=== PATIENT | female | born 1985 | race Caucasian/White ===

== ENCOUNTER 2020-12-26 10:15 | Inpatient (IN) | payer OTHER ==
[~2020-12-26] VITALS: Ht 149.9 cm; Wt 3.6 kg
[~2020-12-26 10:15] MED LIST: PRENATAL TABLE1 EAC1 PO
[2020-12-26] MEDS ORDERED: PRENATAL + DHA1 EAC1 PO (13:22)
[2020-12-31] MEDS ORDERED: ADULT LOW DOSE81 M1 PO (06:10)
== END 2021-01-02 13:00 | disposition home or self-care (01) | DRG 785 ==
LOC: OB/GYN 12-31 05:45 → O/R 12-31 05:45 → OB/GYN 12-31 08:30
PROVIDERS: ADMIT Obstetrics & Gynecology; ATTEND Obstetrics & Gynecology
PROC: 0UB70ZZ Excision of Bilateral Fallopian Tubes, Open Approach (ICD-10-PCS; 2020-12-31)
PROC: 4A1HXFZ Monitoring of Products of Conception, Cardiac Rhythm, External Approach (ICD-10-PCS; 2020-12-31)
PROC: 10D00Z1 Extraction of Products of Conception, Low, Open Approach (ICD-10-PCS; principal; 2020-12-31 08:30)
DX: O65.5 Obstructed labor due to abnormality of maternal pelvic organs (principal); O34.211 Maternal care for low transverse scar from previous cesarean delivery; Z30.2 Encounter for sterilization; Z37.0 Single live birth; Z3A.39 39 weeks gestation of pregnancy

== ENCOUNTER 2021-05-01 12:08 | Outpatient (CLI) | payer OTHER ==
[~2021-05-01 12:08] MED LIST changes: +ADULT LOW DOSE81 M1 PO; +PRENATAL + DHA1 EAC1 PO
== END 2021-05-01 12:47 | disposition home or self-care (01) ==
LOC: LAB 12:08
DX: Z03.818 Encounter for observation for suspected exposure to other biological agents ruled out (principal)